=== PATIENT | male | born 1990 | race Caucasian/White ===

== ENCOUNTER 2016-09-27 19:52 | Emergency (ER) | payer BC ==
[~2016-09-27] VITALS: Ht 185.4 cm; Wt 93.4 kg
[2016-09-27 20:05] VITALS: TEMP 36.6; Ht 185.4 cm; Wt 93.4 kg
[2016-09-27 20:20] LABS: HEMATOCRIT 42.4 % (42-52); MEAN CELL VOLUME 91.4 fL (80-100); MEAN CORPUSCULAR HEMOGLOBIN 34.3 pg (25-34); MEAN CORPUSCULAR HGB CONC 37.5 g/dl (32-36); MEAN PLATELET VOLUME 9.1 fL (7.4-10.4); PLATELET COUNT 253 K/uL (130-400); RED BLOOD COUNT 4.64 M/uL (4.7-6.1); WHITE BLOOD COUNT 5.88 K/uL (4.8-10.8)
[2016-09-27 20:26] VITALS: O2SAT 100
[2016-09-27 20:30] LABS: BUN/CREATININE RATIO 8.1 (10-20); CALCIUM 9.8 mg/dl (8.5-10.1); CREATININE 1.1 mg/dl (0.60-1.40); POTASSIUM 2.8 mmol/L (3.5-5.1)
--- NOTE | 2016-09-27 20:32 | EMERGENCY ROOM VISIT NOTE ---
History Report prepared by Ailyn: Luis M Meehan Under the Supervision of: Dr. Fran Chao M.D. First contact with patient: 20:17 Chief Complaint: CHEST PAIN Stated Complaint: CHEST PAIN Nursing Triage Summary: left chest discomfort x 2weeks, has stressful job. History of Present Illness The patient is a 26 year old male who presents to the Emergency Room with complaints of intermittent chest pain for the past two weeks. He describes the discomfort as sharp and notes that it is worse in the evenings. He notes that these episodes last about 15 to 30 minutes and notes some shortness of breath with them. The patient also notes that he has felt his heart either skipping beats or racing during these episodes. He denies nausea, vomiting, swelling in legs, syncope, or steroid use. He denies any family history of cardiac problems earlier in life. The patient has recently travelled long distances in the car over the past couple of weeks. Source of History: patient Onset: past two weeks Position: chest Quality: sharp Timing: intermittent Modifying Factors (Worsening): other (in the evenings) Associated Symptoms: + SOB, No LOC (denies syncope), No nausea, No vomiting Note: Other associated symptoms: feeling like his heart is racing/skipping beats denies: swelling in legs, steroid use Review of Systems See HPI for pertinent positives & negatives. A total of 10 systems reviewed and were otherwise negative. Past Medical & Surgical Medical Problems: (1) No Known Active Medical Problems Family History Patient reports no known family medical history. Social History Smoking Status: Current Every Day Smoker Housing Status: lives with roommate Occupation Status: employed Current/Historical Medications No Active Prescriptions or Reported Meds Allergies Coded Allergies: No Known Allergies (Unverified , 09/27/16) Physical Exam Vital Signs Date Time Temp Pulse Resp B/P Pulse Ox O2 Delivery O2 Flow Rate FiO2 09/27/16 22:11 72 15 130/57 95 09/27/16 21:22 67 15 144/70 96 Room Air 09/27/16 20:27 100 Room Air 09/27/16 20:26 100 Room Air 09/27/16 20:05 100 Room Air 09/27/16 20:05 36.6 85 16 128/95 100 Room Air 09/27/16 20:01 89 Physical Exam GENERAL: Patient is mildly anxious and in no distress. HEENT: No acute trauma, normocephalic atraumatic, mucous membranes moist, no nasal congestion, no scleral icterus. NECK: No stridor, no adenopathy, no meningismus, trachea is midline. LUNGS: No dyspnea. Clear to auscultation and equal bilaterally. No wheeze, no rhonchi. HEART: Regular rate and rhythm. No murmurs, rubs, gallops appreciated. ABDOMEN: Soft, nontender, bowel sounds positive, no masses appreciated, no peritonitis. BACK: No midline tenderness, no CVA tenderness EXTREMITIES: Normal motion all extremities, no cyanosis, no edema. NEUROLOGIC: Alert and oriented, no acute motor or sensory deficits, no focal weakness, cranial nerves grossly intact. SKIN: No rash, no jaundice, no diaphoresis. Medical Decision & Procedures ER Provider Diagnostic Interpretation: X ray results are stated below per my interpretation and the radiologist's interpretation. CHEST ONE VIEW PORTABLE CLINICAL HISTORY: Chest pain. COMPARISON STUDY: No previous studies for comparison. FINDINGS: Lung volumes are normal. Lungs are clear. There is no pneumothorax or pleural effusion. Cardiac size is normal. Mediastinal contours are normal. There is no evidence of pulmonary edema. IMPRESSION: No acute cardiopulmonary findings. Electronically signed by: Anastacio Garber M.D. 09/27/2016 8:48 PM Dictated Date/Time: 09/27/2016 8:47 PM Laboratory Results 09/27/16 19:50 09/27/16 19:50 Test 09/27/16 19:50 Red Blood Count 4.64 M/uL (4.7-6.1) Mean Corpuscular Volume 91.4 fL (80-100) Mean Corpuscular Hemoglobin 34.3 pg (25-34) Mean Corpuscular Hemoglobin Concent 37.5 g/dl (32-36) RDW Standard Deviation 38.0 fL (36.4-46.3) RDW Coefficient of Variation 11.4 % (11.5-14.5) Mean Platelet Volume 9.1 fL (7.4-10.4) Prothrombin Time 11.1 SECONDS (9.0-12.0) Prothromb Time International Ratio 1.0 (0.9-1.1) Activated Partial Thromboplast Time 23.2 SECONDS (21.0-31.0) Partial Thromboplastin Ratio 0.9 D-Dimer < 190 ug/L FEU (0-500) Anion Gap 16.0 mmol/L (3-11) Est Creatinine Clear Calc Drug Dose 117.0 ml/min Estimated GFR () 108.3 Estimated GFR (Non- 93.5 BUN/Creatinine Ratio 8.1 (10-20) Calcium Level 9.8 mg/dl (8.5-10.1) Total Bilirubin 1.0 mg/dl (0.2-1) Aspartate Amino Transf (AST/SGOT) 16 U/L (15-37) Alanine Aminotransferase (ALT/SGPT) 19 U/L (12-78) Alkaline Phosphatase 85 U/L (45-117) Total Creatine Kinase 50 U/L (39-308) Creatine Kinase MB 0.6 ng/ml (0.5-3.6) Creatine Kinase MB Ratio 1.2 (0-3.0) Total Protein 8.9 gm/dl (6.4-8.2) Albumin 5.1 gm/dl (3.4-5.0) Globulin 3.8 gm/dl (2.5-4.0) Albumin/Globulin Ratio 1.3 (0.9-2) Laboratory results as reviewed by me. ECG Indication: chest pain Rate (beats per minute): 75 Rhythm: other (sinus morphology criteria for brugada type 1) Findings: no acute ischemic change, no ectopy ED Course 2015: The patient was evaluated in room B8. A complete history and physical exam was performed. 2126: At this time, I discussed the patient's case with Dr. Ellington - Cardiology [facility] [place] and he notes that there is no indication for admission and he will follow up with her in the outpatient clinic. 2131: Reevaluated the patient. Discussed results and discharge instructions: He feels comfortable going home. He verbalized understanding and agreement. The patient is ready for discharge. Medical Decision Differential: Cardiac Ischemia (STEMI, NSTEMI, Unstable Angina, etc), Aortic Dissection, Arrhythmia, Pulmonary Embolism, Pneumonia, Pneumothorax, MSK, Infectious, Pericarditis/Myocarditis, Esophageal Rupture, Gastrointestinal, amongst other pathologies entertained. 26 yr old male with periodic left upper chest discomfort without other significant symptoms. CXR clear. Labs negative with negative Trop. After 2 weeks symptoms and negative Trop I do not feel this is ACS. Dimer negative and in low risk patient I do not feel CT PE necessary. EKG with evidence of Type 1 Brugada. This is not consistent with his symptoms and is incidental findings. No family history of sudden cardiac . Advised follow up with Cards for further evaluation of EKG findings. Discussed symptoms requiring emergent return. Mild HypoKalemia and advised increased K in diet. Consults Time Called: 2121 Consulting Physician: Dr. Ellington - Cardiology [facility] [place] Returned Call: 2126 At this time, I discussed the patient's case with Dr. Ellington and he notes that there is no indication for admission and he will follow up with her in the outpatient clinic. Impression Primary Impression: Left sided chest pain Additional Impressions: Brugada Hypokalemia Scribe Attestation The scribe's documentation has been prepared under my direction and personally reviewed by me in its entirety. I confirm that the note above accurately reflects all work, treatment, procedures, and medical decision making performed by me. Departure Information Dispostion Home / Self-Care Prescriptions No Active Prescriptions or Reported Meds Referrals Parviz Ellington M.D. Forms HOME CARE DOCUMENTATION FORM, IMPORTANT VISIT INFORMATION Patient Instructions Chest Pain - [facility], My [facility] Health Problem Qualifiers
[2016-09-27 20:35] LABS: ALB/GLOB RATIO 1.3 (0.9-2); CKMB/CK RATIO 1.2 (0-3.0); PARTIAL THROMBOPLASTIN RATIO 0.9; PROTHROMBIN TIME (PATIENT) 11.1 SECONDS (9.0-12.0)
--- NOTE | 2016-09-27 20:49 | DIAGNOSTIC IMAGING REPORT ---
CHEST ONE VIEW PORTABLE CLINICAL HISTORY: Chest pain. COMPARISON STUDY: No previous studies for comparison. FINDINGS: Lung volumes are normal. Lungs are clear. There is no pneumothorax or pleural effusion. Cardiac size is normal. Mediastinal contours are normal. There is no evidence of pulmonary edema. IMPRESSION: No acute cardiopulmonary findings. Electronically signed by: Anastacio Garber M.D. 09/27/2016 8:48 PM Dictated Date/Time: 09/27/2016 8:47 PM
[2016-09-27 22:11] VITALS: BP 130/57; PULSE 72; O2SAT 95
== END 2016-09-27 22:13 | disposition home or self-care (01) ==
LOC: C.EDB 19:54
DX: R07.9 Chest pain, unspecified (principal); I49.8 Other specified cardiac arrhythmias; E87.6 Hypokalemia; F17.200 Nicotine dependence, unspecified, uncomplicated

== ENCOUNTER → 2017-01-26 | Outpatient (CLI) | payer BC ==
[2017-01-26 13:06] LABS: BASO % 0.3 %; BASO ABS # 0.01 K/uL (0-0.2); COMPLETE YES; HEMATOCRIT 40.4 % (42-52); LYMPH ABS # 1.11 K/uL (1.2-3.4); MEAN CELL VOLUME 95.7 fL (80-100); MEAN CORPUSCULAR HEMOGLOBIN 33.6 pg (25-34); MEAN CORPUSCULAR HGB CONC 35.1 g/dl (32-36); MEAN PLATELET VOLUME 9.3 fL (7.4-10.4); MONO % 5.5 %; NEUT % 62.2 %; PLATELET COUNT 195 K/uL (130-400); RED BLOOD COUNT 4.22 M/uL (4.7-6.1); WHITE BLOOD COUNT 3.97 K/uL (4.8-10.8)
[2017-01-26 13:15] LABS: ALT/SGPT 20 U/L (12-78); BLOOD UREA NITROGEN 9 mg/dl (7-18); BUN/CREATININE RATIO 8.6 (10-20); CALCIUM 8.9 mg/dl (8.5-10.1); CARBON DIOXIDE 30 mmol/L (21-32); CHLORIDE 106 mmol/L (98-107); CHOLESTEROL 191 mg/dl (0-200); GLUCOSE 87 mg/dl (70-99); POTASSIUM 3.8 mmol/L (3.5-5.1); SODIUM 142 mmol/L (136-145); TRIGLYCERIDES 64 mg/dl (0-150); VERY LOW DENSITY LIPOPROT CALC 13 mg/dl
[2017-01-26 13:23] LABS: ALB/GLOB RATIO 1.3 (0.9-2); ALKALINE PHOSPHATASE 66 U/L (45-117); AST/SGOT 13 U/L (15-37); CHOLESTEROL/HDL RATIO 3.5; HDL CHOLESTEROL 54 mg/dl; LDL CHOLESTEROL CALCULATED 124 mg/dl
[2017-01-29 12:02] LABS: CARBOXY THC TO CREAT RATIO 25 NG/MG; CARBOXY THC UR GC/MS 20 NG/ML (CUTOFF=5); URCREATININE 82.6 MG/DL (>/= 20)
--- NOTE | 2017-01-30 11:47 | CODING QUERY MEDICAL NECESSITY ---
SUPPORTING DIAGNOSIS NEEDED A supporting diagnosis is required for the test/procedure performed on this patient in order for us to be reimbursed by the patient's insurance. Please provide a supporting diagnosis for the following test/procedure listed below next to the test name along with your signature. *If there is no additional diagnosis for this patient that would support the following test/procedure please document that below next to the test/procedure. Test(s)/Procedure(s) that require a supporting diagnosis: * VITAMIN B12 DIAGNOSIS: * FOLIC ACID DIAGNOSIS: * VITAMIN D, 25-HYDROXY DIAGNOSIS: Provider Signature: Date: Thank you Sommer Downey [employer] Once completed, please kindly fax back to [phone] For questions please call [phone]
== END | disposition home or self-care (01) ==
LOC: C.LABMFLN 10:04
PROVIDERS: ATTEND Psychiatry & Neurology Psychiatry
DX: F41.1 Generalized anxiety disorder (principal); Z13.21 Encounter for screening for nutritional disorder